=== PATIENT | female | born 1970 | race Caucasian/White ===

== ENCOUNTER 2018-09-03 11:47 | Observation (INO) | payer OTHER ==
--- NOTE | 2018-09-03 12:50 | EKG ---
Test Date: 2018-09-03 Test Time: 12:14:55 Operations Officer Afloat: JC MEASUREMENT RESULTS: Intervals: Rate: 125 MO: 122 QRSD: 82 QT: 306 QTc: 441 Fowler: P: 48 MO: 122 QRS: 34 T: 28 INTERPRETIVE STATEMENTS: Sinus tachycardia Cannot rule out Anterior infarct, age undetermined Abnormal ECG No previous ECG available for comparison Electronically Signed On 09-03-18 12:49:45 ADVANCED PRACTICE REGISTERED NURSE by Les Alarcon
--- NOTE | 2018-09-03 12:58 | RAD REPORT ---
EXAM DESCRIPTION: RAD - Chest Single View - 09/03/2018 12:53 pm CLINICAL HISTORY: PALPITATIONS Chest pain. COMPARISON: No comparisons FINDINGS: Portable technique limits examination quality. The lungs are grossly clear. The heart is normal in size. No displaced fractures. IMPRESSION: No acute intrathoracic process suspected.
[2018-09-03 13:04] LABS: Absolute Lymphocytes (CBC) 1.4 K/uL (0.7-4.9); Absolute Monocytes 0.6 K/uL (0.1-1.3); Absolute Neutrophil 7.2 K/uL (1.8-8.0); Basophils % 0.2 % (0-1.3); Eosinophils % 0.6 % (0-4.4); Hematocrit 39.1 % (36.0-45.0); Lymphocytes % 15.4 % (15.3-44.8); MPV 8.4 fL (7.6-11.3); Monocytes % 6.6 % (3.3-12.3)
[2018-09-03 13:30] LABS: Magnesium 2.5 mg/dL (1.8-2.4); Potassium 3.9 mmol/L (3.5-5.1); Troponin (Emerg Dept Use Only) 0.11 ng/mL (0.0-0.045)
[2018-09-03] MEDS ORDERED: METOPROLOL TAR 25 MG TAB ONE (13:31)
[2018-09-03 13:42] LABS: Thyroid Stimulating Hormone 1.86 uIU/mL (0.360-3.740)
[2018-09-03 14:07] LABS: Urine Blood NEGATIVE (NEG); Urine Glucose NEGATIVE (NEG); Urine Protein NEGATIVE (NEG)
[2018-09-03] MEDS ORDERED: ASPIRIN 81 MG CHEWABLE TABLET ONE (14:39)
--- NOTE | 2018-09-03 16:10 | ER ---
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 Rate en route to ED was 225, after failed vagal maneuvers, 6 mg of adenosine had been given and patient's rate decreased to 125 bmp. Pt reports feeling much better. Transition of care: patient was not received from another setting of care. Onset of symptoms was September 03, 2018. Risk Assessment: Do you want to hurt yourself or someone else? Patient reports no desire to harm self or others. Initial Sepsis Screen: Does the patient meet any 2 criteria? HR > 90 bpm. Does the patient have a suspected source of infection? No. Patient's initial sepsis screen is negative. Care prior to arrival: Medication(s) given: adenosine 6 mg IVP. 12:04 Method Of Arrival: EMS: [facility] 12:04 Acuity: LEILA 3 ss Historical: - Allergies: 12:09 No Known Allergies; ss - Home Meds: 12:09 None [Active]; ss - PMHx: 12:09 SVT; ss - PSHx: 12:09 None; ss - Immunization history:: Adult Immunizations up to date. - Social history:: Smoking status: Patient uses tobacco products, PT reports she used to smoke occasionally, but recently quit 6 weeks ago. . - Ebola Screening: : Patient denies exposure to infectious person Patient denies travel to an Ebola-affected area in the 21 days before illness onset. - Family history:: not pertinent. - Hospitalizations: : No recent hospitalization is reported. Screenin:02 Abuse screen: Denies threats or abuse. Denies injuries from another. Nutritional ch screening: No deficits noted. Tuberculosis screening: No symptoms or risk factors identified. Fall Risk None identified. Assessment: 13:02 Reassessment: Patient appears in no apparent distress at this time. Patient and/or ch family updated on plan of care and expected duration. Pain level reassessed. Patient is alert, oriented x 3, equal unlabored respirations, skin warm/dry/pink. Patient denies pain at this time. General: Appears in no apparent distress. comfortable, Behavior is calm, cooperative, appropriate for age. Pain: Denies pain. Pain does not radiate. Neuro: No deficits noted. Cardiovascular: Reports fatigue, Heart tones S1 S2 present Capillary refill < 3 seconds in bilateral fingers toes Clubbing of nail beds is absent Patient's skin is warm and dry. Pulses are all present. Rhythm is sinus tachycardia. Respiratory: Airway is patent Respiratory effort is even, unlabored, Breath sounds are clear bilaterally. GI: No signs and/or symptoms were reported involving the gastrointestinal system. : No signs and/or symptoms were reported regarding the genitourinary system. Derm: Skin is pink, warm \T\ dry. Musculoskeletal: No signs and/or symptoms reported regarding the musculoskeletal system. 13:22 Reassessment: Patient appears in no apparent distress at this time. No changes from previously documented assessment. Patient and/or family updated on plan of care and expected duration. Pain level reassessed. Patient is alert, oriented x 3, equal unlabored respirations, skin warm/dry/pink. Patient denies pain at this time. 14:18 Reassessment: Patient appears in no apparent distress at this time. Patient and/or ch family updated on plan of care and expected duration. Pain level reassessed. Patient is alert, oriented x 3, equal unlabored respirations, skin warm/dry/pink. Patient states feeling better. Patient states symptoms have improved. 14:27 Reassessment: Repeat troponin sent to lab, awaiting results. Pt has no complaints at this time. Is visiting with family member at bedside. Call light remains within reach. 15:45 Reassessment: Patient appears in no apparent distress at this time. Patient and/or ch family updated on plan of care and expected duration. Pain level reassessed. Patient is alert, oriented x 3, equal unlabored respirations, skin warm/dry/pink. 16:45 Reassessment: Patient appears in no apparent distress at this time. Patient and/or ch family updated on plan of care and expected duration. Pain level reassessed. Patient is alert, oriented x 3, equal unlabored respirations, skin warm/dry/pink. Patient denies pain at this time. 18:11 Reassessment: Patient appears in no apparent distress at this time. Patient and/or ch family updated on plan of care and expected duration. Pain level reassessed. Patient is alert, oriented x 3, equal unlabored respirations, skin warm/dry/pink. PT AWAITING BED ASSIGNMENT. NO S/S OF DISTRESS. 19:09 General: Appears in no apparent distress. Behavior is calm, cooperative, appropriate ea for age. Pain: Denies pain. Neuro: Level of Consciousness is awake, alert, obeys commands, Oriented to person, place, time. Cardiovascular: Patient's skin is warm and dry. Respiratory: Airway is patent Respiratory effort is even, unlabored, Respiratory pattern is regular, symmetrical, Breath sounds are clear bilaterally. GI: No signs and/or symptoms were reported involving the gastrointestinal system. : No signs and/or symptoms were reported regarding the genitourinary system. Derm: Skin is pink, warm \T\ dry. Musculoskeletal: No signs and/or symptoms reported regarding the musculoskeletal system. 20:01 Reassessment: Patient and/or family updated on plan of care and expected duration. Pain ea level reassessed. Patient is alert, oriented x 3, equal unlabored respirations, skin warm/dry/pink. Pt admitted to fourth floor, left via wheelchair per tech. Pt tolerating well. Patient denies pain at this time. Vital Signs: 12:09 BP 145 / 100; Pulse 125; Resp 20; Pulse Ox 100% on R/A; Weight 76.2 kg; Height 5 ft. 4 ss in. (162.56 cm); Pain 0/10; 13:02 BP 134 / 102; Pulse 126; Resp 12; Pulse Ox 99% on R/A; Pain 0/10; ch 14:18 BP 131 / 92; Pulse 95; Resp 14; Pulse Ox 100% on R/A; Pain 0/10; ch 14:46 BP 122 / 91; Pulse 96; ch 15:44 BP 135 / 102; Pulse 99; Resp 17; Pulse Ox 100% ; Pain 0/10; ch 16:45 BP 143 / 108; Pulse 96; Resp 16; Pulse Ox 99% on R/A; Pain 0/10; ch 19:04 BP 120 / 82; Pulse 97; Resp 15; Temp 98; Pulse Ox 98% on R/A; Pain 0/10; ch 12:09 Body Mass Index 28.84 (76.20 kg, 162.56 cm) ED Course: 12:03 Patient arrived in ED. ss 12:03 Bashir Betancourt MD is Attending Physician. rn 12:08 Triage completed. ss 12:09 Arm band placed on right wrist. ss 12:21 EKG done, by sterile process tech. reviewed by Bashir Betancourt MD. 3 12:30 Chrissy Cohen, SOHAM is Primary Nurse. ch 12:47 X-ray completed. Portable x-ray completed in exam room. Patient tolerated procedure jb2 well. 12:59 RAD In Process Unspecified. EDMS 13:02 No apparent distress. Resting quietly. ch 13:02 Patient has correct armband on for positive identification. Placed in gown. Bed in low ch position. Call light in reach. Side rails up X 1. Adult w/ patient. senior clinical consultant on. Pulse ox on. NIBP on. Warm blanket given. 13:02 No provider procedures requiring assistance completed. Maintain EMS IV. Dressing ch intact. Good blood return noted. Site clean \T\ dry. Gauge \T\ site: 20 R AC. IV is patent, with fluids infusing freely, with good blood return, Flushed right saline lock. Patient maintains SpO2 saturation greater than 95% on room air. 16:09 Riley Ho MD is Hospitalizing Provider. rn 19:03 Report given to ursula. ch 19:09 Ursula Lagos, RN is Primary Nurse. ea 20:01 Patient admitted, IV remains in place. ea Administered Medications: 13:23 Drug: Metoprolol 25 mg Route: PO; ch 14:46 Follow up: BP 122 / 91; Pulse 96 bpm; Response: No adverse reaction; Marked relief of ch symptoms 14:22 Drug: Aspirin Chewable Tablet 324 mg Route: PO; ch 14:46 Follow up: Response: No adverse reaction; Marked relief of symptoms ch Outcome: 16:09 Decision to Hospitalize by Provider. rn 19:00 Instructed on the need for admit. ea 19:59 Admitted to Med/surg accompanied by tech, family with patient, via wheelchair, with ea chart, Report called to Receiving nurse on fourth floor 19:59 Condition: stable 20:02 Patient left the ED. ea Signatures: Dispatcher [employer] Chrissy Cedeno, RN RN Blane Iyer jb2 Bashir Betancourt MD MD rn Smirch, Shelby, RN RN Ursula Lagos RN RN ea Montes, Ana Maria 3
--- NOTE | 2018-09-03 16:10 | EDPHYS ---
Physician Documentation [facility] Name: Nadine Bruno Age: 48 yrs Sex: Female : 1970 Arrival Date: 09/03/2018 Time: 12:03 Bed 30 Private MD: ED Physician Bashir Betancourt HPI: 09/03 12:26 This 48 yrs old Female presents to ER via EMS with complaints of Palpitations.rn 12:26 The patient presents with a history of heart racing. Context: The symptoms occur at rn rest. Onset: The symptoms/episode began/occurred this morning. Duration: The patient or guardian reports a single episode. Modifying factors: The symptoms are aggravated by nothing. Associated signs and symptoms: Pertinent positives: anxiety, Pertinent negatives: fever, SOB, syncope. Severity of symptoms: At their worst the symptoms were moderate in the emergency department the symptoms have improved. The patient has experienced similar episodes in the past. Reports has happened several times before, no diagnosis, began this morning, constant, given 6mg adenosine by EMS, and now feels back to baseline. Reports has seen Dr. Allen but ran out of metoprolol a long time ago and didn't think anything of it because hadn't happened in a while. . Historical: - Allergies: 12:09 No Known Allergies; ss - Home Meds: 12:09 None [Active]; ss - PMHx: 12:09 SVT; ss - PSHx: 12:09 None; ss - Immunization history:: Adult Immunizations up to date. - Social history:: Smoking status: Patient uses tobacco products, PT reports she used to smoke occasionally, but recently quit 6 weeks ago. . - Ebola Screening: : Patient denies exposure to infectious person Patient denies travel to an Ebola-affected area in the 21 days before illness onset. - Family history:: not pertinent. - Hospitalizations: : No recent hospitalization is reported. ROS: 12:26 Constitutional: Negative for fever, chills, and weight loss, Eyes: Negative for injury, rn pain, redness, and discharge, Neck: Negative for injury, pain, and swelling, Cardiovascular: + palpitations, neg for chest pain Respiratory: Negative for shortness of breath, cough, wheezing, and pleuritic chest pain, Abdomen/GI: Negative for abdominal pain, nausea, vomiting, diarrhea, and constipation, MS/Extremity: Negative for injury and deformity, Skin: Negative for injury, rash, and discoloration, Neuro: Negative for headache, weakness, numbness, tingling, and seizure. Exam: 12:26 Constitutional: This is a well developed, well nourished patient who is awake, alert, rn appears anxious and tearful Head/Face: Normocephalic, atraumatic. Eyes: Pupils equal round and reactive to light, extra-ocular motions intact. Lids and lashes normal. Conjunctiva and sclera are non-icteric and not injected. Cornea within normal limits. Periorbital areas with no swelling, redness, or edema. ENT: MMM, no stridor Cardiovascular: tachycardic, regular, no murmur Respiratory: Lungs have equal breath sounds bilaterally, clear to auscultation, no increased work of breathing, no retractions or nasal flaring. Abdomen/GI: soft, nontender Skin: Warm, dry with normal turgor. Normal color with no rashes, no lesions, and no evidence of cellulitis. MS/ Extremity: Pulses equal, no cyanosis. Neurovascular intact. Full, normal range of motion. Equal circumference. Neuro: Awake and alert, GCS 15, oriented to person, place, time, and situation. Cranial nerves II-XII grossly intact. Motor strength 5/5 in all extremities. Sensory grossly intact. Vital Signs: 12:09 BP 145 / 100; Pulse 125; Resp 20; Pulse Ox 100% on R/A; Weight 76.2 kg; Height 5 ft. 4 ss in. (162.56 cm); Pain 0/10; 13:02 BP 134 / 102; Pulse 126; Resp 12; Pulse Ox 99% on R/A; Pain 0/10; ch 14:18 BP 131 / 92; Pulse 95; Resp 14; Pulse Ox 100% on R/A; Pain 0/10; ch 14:46 BP 122 / 91; Pulse 96; ch 15:44 BP 135 / 102; Pulse 99; Resp 17; Pulse Ox 100% ; Pain 0/10; ch 16:45 BP 143 / 108; Pulse 96; Resp 16; Pulse Ox 99% on R/A; Pain 0/10; ch 19:04 BP 120 / 82; Pulse 97; Resp 15; Temp 98; Pulse Ox 98% on R/A; Pain 0/10; ch 12:09 Body Mass Index 28.84 (76.20 kg, 162.56 cm) ss MDM: 12:03 Patient medically screened. rn 16:07 Data reviewed: vital signs, nurses notes, lab test result(s), EKG, radiologic studies, rn plain films, and as a result, I will admit patient. Counseling: I had a detailed discussion with the patient and/or guardian regarding: the historical points, exam findings, and any diagnostic results supporting the discharge/admit diagnosis, lab results, radiology results, the need for further work-up and treatment in the hospital. Response to treatment: the patient's symptoms have markedly improved after treatment, and as a result, I will admit patient. Admission orders: after a detailed discussion of the patient's condition and case, the admit orders are written by me. ED course: Pt asymptomatic, trop increased, will admit to rule out ischemic event triggering SVT. 09/03 12:04 Order name: Basic Metabolic Panel; Complete Time: 13:55 rn 09/03 12:04 Order name: CBC with Diff; Complete Time: 13:11 rn 09/03 12:04 Order name: Magnesium; Complete Time: 13:55 rn 09/03 12:04 Order name: Troponin (emerg Dept Use Only); Complete Time: 13:55 rn 09/03 12:20 Order name: TSH; Complete Time: 13:55 rn 09/03 12:20 Order name: T4 Free; Complete Time: 13:55 rn 09/03 12:04 Order name: XRAY Chest (1 view) rn 09/03 12:04 Order name: EKG; Complete Time: 12:05 rn 09/03 12:59 Order name: RAD EDMS 09/03 13:21 Order name: Urine Dipstick--Ancillary (enter results); Complete Time: 14:15 eb 09/03 13:21 Order name: Urine --Ancillary (enter results); Complete Time: 14:15 eb 09/03 14:16 Order name: Troponin (emerg Dept Use Only); Complete Time: 15:11 rn 09/03 12:04 Order name: Cardiac monitoring; Complete Time: 13:08 rn 09/03 12:04 Order name: EKG - Nurse/Tech; Complete Time: 13:08 rn 09/03 12:04 Order name: IV Saline Lock; Complete Time: 13:08 rn 09/03 12:04 Order name: Labs collected and sent; Complete Time: 13:08 rn 09/03 12:04 Order name: O2 Per Protocol; Complete Time: 13:08 rn 09/03 12:04 Order name: O2 Sat Monitoring; Complete Time: 13:07 rn 09/03 12:12 Order name: Urine Dipstick-Ancillary (obtain specimen); Complete Time: 13:07 rn Administered Medications: 13:23 Drug: Metoprolol 25 mg Route: PO; ch 14:46 Follow up: BP 122 / 91; Pulse 96 bpm; Response: No adverse reaction; Marked relief of ch symptoms 14:22 Drug: Aspirin Chewable Tablet 324 mg Route: PO; ch 14:46 Follow up: Response: No adverse reaction; Marked relief of symptoms ch Disposition: 09/03/18 16:09 Hospitalization ordered by Riley Ho for Inpatient Admission. Preliminary diagnosis are Supraventricular tachycardia, Elevated troponin. - Bed requested for Telemetry/MedSurg (Inpatient). - Status is Inpatient Admission. ea - Condition is Stable. - Problem is new. - Symptoms have improved. UTI on Admission? No Signatures: Dispatcher [employer] EDMS Chrissy Cohen RN RN Bashir Betancourt MD MD rn Smirch, Shelby, RN RN ss Antunez, Elena, RN RN ea Botello, Elizabeth eb Corrections: (The following items were deleted from the chart) 18:49 16:09 Hospitalization Ordered by Riley Ho MD for Inpatient Admission. Preliminary eb diagnosis is Supraventricular tachycardia; Elevated troponin. Bed requested for Telemetry/MedSurg (Inpatient). Status is Inpatient Admission. Condition is Stable. Problem is new. Symptoms have improved. UTI on Admission? No. rn 20:02 18:49 09/03/2018 16:09 Hospitalization Ordered by Riley Ho MD for Inpatient ea Admission. Preliminary diagnosis is Supraventricular tachycardia; Elevated troponin. Bed requested for Telemetry/MedSurg (Inpatient). Status is Inpatient Admission. Condition is Stable. Problem is new. Symptoms have improved. UTI on Admission? No. eb
[2018-09-03] MEDS ORDERED: ACETAMINOPHEN 500 MG TAB PO PRN (18:58)
[2018-09-03] MEDS ORDERED: METOPROLOL TAR 25 MG TAB PO SCH (18:59)
--- NOTE | 2018-09-03 19:43 | P.HP ---
Certification for Inpatient Patient admitted to: Observation With expected LOS: <2 Midnights Practitioner: I am a practitioner with admitting privileges, knowledge of patient current condition, hospital course, and medical plan of care. 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 It last for a couple of hours. 911 was called, when EMS arrived did an EKG, it was SVT at 275, then she was transferred to ER. Initial vagal maneuvers were not effective, subsequently IV adenosine 6 mg, successfully converted the rhythm back to SR. The patient denied any chest pain, dizziness, or SOB associated with her palpitations. Lab work remarkable for elevated trop I 0.11, TSH normal. At my encounter the patient was on non-distress, asymptomatic. Allergies No Known Allergies Allergy (Unverified 09/03/18 18:43) Home medications list reviewed: Yes - Past Medical/Surgical History -: SVT Past Surgical History: Reviewed- Non-Contributory - Family History Family History: Reviewed- Non-Contributory - Social History Smoking Status: Former smoker Alcohol use: Yes CD- Drugs: No Caffeine use: Yes Place of Residence: Home Review of Systems 10-point ROS is otherwise unremarkable Physical Examination - Physical Exam General: Alert, In no apparent distress HEENT: Atraumatic, PERRLA, Mucous membr. moist/pink, EOMI, Sclerae nonicteric Neck: Supple, 2+ carotid pulse no bruit, No LAD, Without JVD or thyroid abnormality Respiratory: Clear to auscultation bilaterally, Normal air movement Cardiovascular: Regular rate/rhythm, Normal S1 S2 Gastrointestinal: Normal bowel sounds, No tenderness Musculoskeletal: No tenderness Integumentary: No rashes Neurological: Normal speech, Normal strength at 5/5 x4 extr, Normal tone, Normal affect Lymphatics: No axilla or inguinal lymphadenopathy - Studies Laboratory Data (last 24 hrs) 09/03/18 12:51: WBC 9.4, Hgb 12.9, Hct 39.1, Plt Count 327 09/03/18 12:51: Sodium 139, Potassium 3.9, BUN 7, Creatinine 0.76, Glucose 86, Magnesium 2.5 H Assessment and Plan - Problems (Diagnosis) (1) SVT (supraventricular tachycardia) Current Visit: Yes Status: Acute (2) Elevated troponin I level Current Visit: Yes Status: Acute - Plan The patient was admitted to the hospital due to SVT episode with subsequent elevated troponinI. This might be secondary to a leaking due to significant tachycardia. Will continue serial trop I and EKG. Will consult Cardiology for evaluation and recommendations. - Advance Directives Does patient have a Living Will: No Does patient have a Durable POA for Healthcare: No - Code Status/Comfort Care Code Status Assessed: Yes Code Status: Full Code
[2018-09-03] MEDS: ENOXAPARIN 40 MG/0.4 ML SQ SCH (22:46)
[2018-09-04 04:23] LABS: Absolute Lymphocytes (CBC) 2.7 K/uL (0.7-4.9); Absolute Monocytes 0.8 K/uL (0.1-1.3); Absolute Neutrophil 5.2 K/uL (1.8-8.0); Basophils % 0.3 % (0-1.3); Hematocrit 36.7 % (36.0-45.0); Lymphocytes % 30.6 % (15.3-44.8); MPV 8.7 fL (7.6-11.3); Monocytes % 8.7 % (3.3-12.3); RBC Red Blood Cell Count 4.26 M/uL (3.86-4.86)
[2018-09-04 04:49] LABS: Bilirubin Total 0.3 mg/dL (0.2-1.0)
[2018-09-04 04:50] LABS: Albumin 3.3 g/dL (3.4-5.0); Phosphorus 4.3 mg/dL (2.5-4.9); Protein, Total 6.9 g/dL (6.4-8.2)
[2018-09-04] MEDS ORDERED: METOPROLOL TAR 25 MG TAB PO SCH (06:00)
[2018-09-04] MEDS ORDERED: INFLUENZA VACCINE (for 3y+) 0.5 ML DOSE IMVAC ONE (08:00)
[2018-09-04] MEDS: ENOXAPARIN 40 MG/0.4 ML SQ SCH (10:33)
--- NOTE | 2018-09-04 12:38 | ECHO ---
HEIGHT: 5 ft 4 in WEIGHT: 170 lb 1.6 oz DATE OF STUDY: 09/04/[address]: Bj Monte MD 2-DIMENSIONAL: YES M.MODE: YES DOPPLER: YES COLOR FLOW: YES TDS: NO PORTABLE: NO DEFINITY: NO BUBBLE STUDY: NO DIAGNOSIS: SUPRAVENTRICULAR TACHYCARDIA CARDIAC HISTORY: CATHERIZATION: NO SURGERY: NO PROSTHETIC VALVE: NO PACEMAKER: NO MEASUREMENTS (cm) DIASTOLIC (NORMALS) SYSTOLIC (NORMALS) IVSd 1.1 (0.6-1.2) LA Diam 3.3 (1.9-4.0) LVEF 61% LVIDd 3.4 (3.5-5.7) LVIDs 2.3 (2.0-3.5) %FS 32% LVPWd 1.2 (0.6-1.2) Ao Diam 2.6 (2.0-3.7) 2 DIMENSIONAL ASSESSMENT: RIGHT ATRIUM: NORMAL LEFT ATRIUM: NORMAL RIGHT VENTRICLE: NORMAL LEFT VENTRICLE: NORMAL TRICUSPID VALVE: NORMAL MITRAL VALVE: NORMAL PULMONIC VALVE: NORMAL AORTIC VALVE: NORMAL PERICARDIAL EFFUSION: NONE AORTIC ROOT: NORMAL LEFT VENTRICULAR WALL MOTION: NORMAL DOPPLER/COLOR FLOW: NORMAL COMMENTS: NORMAL 2D ECHOCARDIOGRAM WITH DOPPLER. NO WALL MOTION ABNORMALITY. NO EFFUSION. TECHNOLOGIST: Lashaun WYNNE
--- NOTE | 2018-09-05 14:26 | DS ---
Date of Discharge: 09/04/2018 Consultants: Dr. Allen with Cardiology. Discharge Diagnoses: 1. SVT. 2. Elevated troponin level. Hospital Course: The patient is a 48-year-old female with previous history of SVT 4 years ago, who was on beta blockers until 2 years ago, who was no longer taking any beta blockers. The patient came in with feeling of palpitations, heart racing. She was found to be in SVT. Conservative measures including vagal maneuvers were not effective. The patient was given IV adenosine 6 mg, which converted the patient back to sinus rhythm. The patient did have elevated cardiac enzymes likely related to SVT. Cardiology was consulted. The patient was started on Toprol. Echocardiogram was done, which showed normal ejection fraction of 61%. No wall motion abnormality. No pericardial effusion. Chest x-ray was clear. The patient was then cleared for discharge from Cardiology standpoint. Medications: Toprol-XL 50 mg daily. Remainder of medications as per medication reconciliation list. Followup: 1. Follow up with primary care physician in 2-3 days. 2. Follow up with account development manager, Dr. Allen in 2 weeks. 3. Return to ER for worsening condition. Diet: Heart healthy. Activity: As tolerated. Physical Examination: General: Awake, alert, oriented, in no acute distress. CV: S1, S2. No murmurs. Respiratory: Moving air well bilaterally. Abdomen: Abdomen is soft, nontender, nondistended. Positive bowel sounds. Extremities: No clubbing, cyanosis, or edema. Neurologic: Nonfocal. SA/MODL Voice ID: [id number] Report ID: [id number] [facility]
--- NOTE | 2018-09-06 23:20 | CON ---
Date of Consultation: 09/04/2018 Reason For Consultation: SVT. History Of Present Illness: Ms. Bruno is a 48-year-old white woman, has really no significant past m edical history except for SVT. She had that done and evaluated about 3-4 years ago in my office, had a negative echo and negative stress test, then she has negative thyroid. Not taking any medicine fo r her SVT except for metoprolol shortly after her diagnosis, but she has not had any recurrence since . She came in with few hours of SVT, had some diaphoresis and nausea. No chest pain. No syncope. Symptoms lasted long enough. She came to the emergency room and she received Adenocard and converted back to normal sinus rhythm. She denied syncope, denied chest pain. Past Medical History: Otherwise negative. Allergies: NONE. Review of Systems: Negative. Social History: Negative for drugs, alcohol or tobacco or excessive caffeine. Family History: Negative. Medications: At home are none. Physical Examination: Vital Signs: Stable. She was afebrile. HEENT: Negative. Neck: Supple without any bruit, lymphadenopathy, JVD or thyromegaly. Chest: Clear to auscultation and percussion. Cardiac: Exam revealed a regular rhythm and rate without murmurs, gallops or rubs. Abdomen: Benign. Extremities: Revealed no clubbing, cyanosis or edema. Diagnostic Data: All normal. Impression And Plan: Supraventricular tachycardia that has resolved. I do not think she needs to landeros ve an extensive cardiac workup. I think she needs to be placed on a low-dose metoprolol or Toprol to take on a daily basis and increase the dose as needed. The possibility of radiofrequency ablation w ith electrophysiology study was discussed with her. The details of the pathophysiology of the SVT we re discussed with her and her . They will consider the ablation and think about it for now. Initiate beta blockers. The patient can go home. I would like to see her in the office in the next 2 weeks. NIKIA/CHRISTOPH Voice ID: [id number] Report ID: [id number]
== END 2018-09-04 15:00 | disposition home or self-care (01) ==
LOC: ER 11:47 → ERHOLD 16:15 → 4TH 19:46
PROVIDERS: ADMIT Family Medicine; ATTEND Internal Medicine
DX: I47.1 Supraventricular tachycardia (principal); R79.9 Abnormal finding of blood chemistry, unspecified; Z87.891 Personal history of nicotine dependence
CPT/HCPCS: 36415; 71045; 80048; 80053; 81003; 81025; 83735; 84100; 84439; 84443; 84484; 85025; 93005; 93306; 94760; 99285; G0378; J1650